=== PATIENT | female | born 1940 | race Caucasian/White ===

== ENCOUNTER → 2017-09-20 | Outpatient (CLI) | payer MEDICARE ==
[~2017-09-20] MED LIST: ATIVAN1 M1 PO; ATIVAN1 MG PO; BACLOFEN10 MG PO; COLACE10 MG/ML PO; ENDOCET 5-3251 EACH PO; GABAPENTIN100 MG PO; HYDROCHLOROTHIA25 MG PO; HYDROCODON-ACE1 EAC9 PO; IRON325 MG PO; K-DUR10 MEQ PO; LISINOPRIL10 MG PO; MELOXICAM15 MG PO; NEURONTIN300 MG PO; OXYCODONE-APAP1 EACH PO; PERCOCET 10/1 TABLET PO; PRAVACHOL40 MG PO; PRILOSEC20 MG PO; PROTONIX40 MG PO; SALONPAS PATCH1 EAC1 TD; SENNA PLUS TAB1 EACH PO; SIMVASTATIN20 MG PO; TIZANIDINE HCL4 M1 PO; TIZANIDINE HCL4 MG PO; TYLENOL REGULA325 MG PO; VICODIN,LORT1 TABLET PO; VITAMIN B-12250 MCG PO; VITAMIN E400 UNIT PO; XARELTO10 MG PO; ZESTRIL30 MG PO; ZOLOFT100 MG PO
== END | disposition home or self-care (01) ==
LOC: CDC 11:35
DX: Z01.810 Encounter for preprocedural cardiovascular examination (principal); M19.011 Primary osteoarthritis, right shoulder
CPT/HCPCS: 93000

== ENCOUNTER 2017-09-30 05:39 | Day surgery (SDC) | payer OTHER ==
[~2017-09-30] VITALS: Ht 149.9 cm; Wt 65.3 kg
[~2017-09-30 05:39] MED LIST changes: +COZAAR100 MG PO; +LORAZEPAM2 MG PO; +MAGNESIUM OXID500 M1 PO; +OMEPRAZOLE40 M1 PO; +TYLENOL EXTRA500 MG PO; -VITAMIN B-12250 MCG PO; +VITAMIN B-122500 MCG SL; +ZOCOR20 MG PO
[2017-09-30 06:58] VITALS: BP 147/67
[2017-09-30 10:34] VITALS: BP 119/52
[2017-09-30 11:25] VITALS: BP 120/70
== END 2017-09-30 11:35 | disposition home or self-care (01) ==
LOC: SDC
PROC: 0RRJ0J6 Replacement of Right Shoulder Joint with Synthetic Substitute, Humeral Surface, Open Approach (ICD-10-PCS; principal; 2017-09-30)
DX: M19.011 Primary osteoarthritis, right shoulder (principal); I10 Essential (primary) hypertension; K21.9 Gastro-esophageal reflux disease without esophagitis; D64.9 Anemia, unspecified
CPT/HCPCS: C1713; C1776; J0330; J0690; J1100; J1885; J2405; J2710; J2795; J3010; Q0175